=== PATIENT | male | born 1945 | race Caucasian/White ===

== ENCOUNTER 2021-02-12 11:17 | Observation (INO) | payer MEDICARE ==
[~2021-02-12] VITALS: Ht 182.9 cm; Wt 90.7 kg
[2021-02-13 08:08] VITALS: BP 100/69
== END 2021-02-13 12:42 | disposition home or self-care (01) ==
LOC: ED 14:51 → INTOOBSV 15:49 → EDIP 15:49 → SUATTDRO 16:10 → 5SO 18:43
PROVIDERS: ADMIT Internal Medicine; ATTEND Internal Medicine
DX: U07.1 COVID-19 (principal); I48.0 Paroxysmal atrial fibrillation; I48.20 Chronic atrial fibrillation, unspecified; J44.9 Chronic obstructive pulmonary disease, unspecified; F03.90 Unspecified dementia, unspecified severity, without behavioral disturbance, psychotic disturbance, mood disturbance, and anxiety; K21.9 Gastro-esophageal reflux disease without esophagitis; E78.5 Hyperlipidemia, unspecified; F41.9 Anxiety disorder, unspecified; M19.90 Unspecified osteoarthritis, unspecified site; M06.4 Inflammatory polyarthropathy; R41.3 Other amnesia; R45.87 Impulsiveness; Z79.899 Other long term (current) drug therapy; Z87.891 Personal history of nicotine dependence; Z87.01 Personal history of pneumonia (recurrent)
CPT/HCPCS: 36415; 71045; 80048; 82040; 84484; 85025; 96372; 96374; 96375; 99291; G0378; J1160; J1630; J1650; M0243; Q0243